=== PATIENT | male | born 1970 | race American Indian/Alaskan Native ===

== ENCOUNTER 2018-05-02 03:50 | Emergency (ER) | payer SELFPAY ==
[~2018-05-02] VITALS: Ht 172.7 cm; Wt 97.5 kg
--- NOTE | 2018-05-02 03:57 | NUR ---
PT TO ER BED 3
[2018-05-02 04:01] VITALS: BP 129/70
--- NOTE | 2018-05-02 04:01 | NUR ---
Pt presents to ED with penis lodged in 4" glass vase. Pt states drinking x2 days ago when penis was placed in glass vase. 4" long, 2" base, 1" wide neck. Penis is engorged and taken on shape of vase. Pt also placed a plastic tube down the side to urinate. Vss. Positioned in bed. Side rail up. A&Ox4. ER MD aware. Continue to monitor.
--- NOTE | 2018-05-02 04:04 | NUR ---
Dr Yanes at bedside. Small 1/2" hammer used to breake vase off of penis. Sam removed with x1 1mm lac. Penis flushed with NS. Inspected penis to make sure glass particels removed. Pt states pressure released. Edema present over head of penis. Skin pink and intact. Pt tolerated procedure well. Continue to monitor.
[2018-05-02 04:26] VITALS: BP 129/70
--- NOTE | 2018-05-02 04:26 | NUR ---
Patient discharged with v/s stable. Written and verbal after care instructions given and explained. Patient alert, oriented and verbalized understanding of instructions. Ambulatory with steady gait. All questions addressed prior to discharge. ID band removed. Patient advised to follow up with PMD. Rx of Keflex and Mederol given. Patient educated on indication of medication including possible reaction and side effects. Opportunity to ask questions provided and answered.
--- NOTE | 2018-05-02 11:31 | NUR ---
CALLED PT [facility] "HE WILL BE IN TONIGHT TO [employer]MENT [employer] HIS STUFF."
== END 2018-05-02 04:26 | disposition home or self-care (01) ==
LOC: MED 03:50
DX: N48.89 Other specified disorders of penis (principal); R30.0 Dysuria
CPT/HCPCS: 99283